=== PATIENT | male | born 1955 | race Caucasian/White ===

== ENCOUNTER 2019-01-10 09:04 | Day surgery (SDC) | payer OTHER ==
[2019-01-10 09:49] VITALS: BMI 46.1
[2019-01-10 11:18] VITALS: TEMP 98.6
[2019-01-10 11:39] VITALS: BP 110/49
[2019-01-10 11:58] VITALS: PULSE 64
--- NOTE | 2019-01-12 18:10 | PATH ---
Surgical Pathology Report Patient Name: NILESH FRENCH [facility]. Rec. #: [id number] /Age/Gender: 1955 (Age: 63) / M Account: [id number] Location: U-ENDOSCOPY Taken: 01/10/2019 Received: 01/11/2019 Reported: 01/12/2019 Physicians: Gabe Durbin M.D. Specimen(s) Received A: POLYP RECTUM B: POLYP PROXIMAL TRANSVERSE COLON C: POLYP DISTAL TRANSVERSE COLON Clinical History Screening Postoperative diagnosis: Colon polyps, diverticulosis Final Diagnosis A. RECTUM, POLYP, BIOPSY: TUBULAR ADENOMA. B. PROXIMAL TRANSVERSE COLON, POLYP, BIOPSY: POLYPOID COLONIC MUCOSA WITHOUT SIGNIFICANT PATHOLOGIC FINDINGS. C. DISTAL TRANSVERSE COLON, POLYP, BIOPSY: HYPERPLASTIC POLYP. Electronically Signed Nika Hitchcock M.D. Gross Description A. Received in formalin, labeled "polyp rectum" is a whitley, irregular portion of soft tissue measuring 0.3 cm. in greatest dimension. The specimen is submitted in toto in one cassette. B. Received in formalin, labeled "polyp proximal transverse" are 2 whitley, irregular portions of soft tissue averaging 0.2 cm. in greatest dimension. The specimens are submitted in toto in one cassette. C. Received in formalin, labeled "polyp distal transverse colon" are 4 whitley, irregular portions of soft tissue ranging from 0.1-0.4 cm. in greatest dimension. The specimens are submitted in toto in one cassette. DL/01/11/2019 saudi01/11/2019
== END 2019-01-10 12:08 | disposition home or self-care (01) ==
LOC: JASU-ENDO 09:04
PROVIDERS: ATTEND Internal Medicine Gastroenterology
PROC: 0DBL8ZX Excision of Transverse Colon, Via Natural or Artificial Opening Endoscopic, Diagnostic (ICD-10-PCS; 2019-01-10)
PROC: 0DBP8ZX Excision of Rectum, Via Natural or Artificial Opening Endoscopic, Diagnostic (ICD-10-PCS; principal; 2019-01-10 10:00)
DX: Z12.11 Encounter for screening for malignant neoplasm of colon (principal); D12.8 Benign neoplasm of rectum; D12.3 Benign neoplasm of transverse colon; I10 Essential (primary) hypertension; E78.5 Hyperlipidemia, unspecified; G47.30 Sleep apnea, unspecified
CPT/HCPCS: 88305-TC

== ENCOUNTER 2024-12-19 06:26 | Day surgery (SDC) | payer OTHER ==
[2024-12-11 14:13] VITALS: BMI 42.3
[2024-12-19 09:27] VITALS: TEMP 98
[2024-12-19 09:29] VITALS: PULSE 53
[2024-12-19 09:30] VITALS: BP 120/59; RESP 20
== END 2024-12-19 09:15 | disposition home or self-care (01) ==
LOC: JASU-ENDO 06:26
PROVIDERS: ATTEND Internal Medicine Gastroenterology
PROC: 0DBN8ZX Excision of Sigmoid Colon, Via Natural or Artificial Opening Endoscopic, Diagnostic (ICD-10-PCS; principal; 2024-12-19 08:00)
DX: Z12.11 Encounter for screening for malignant neoplasm of colon (principal); D12.5 Benign neoplasm of sigmoid colon; K57.30 Diverticulosis of large intestine without perforation or abscess without bleeding; Z86.0101 Personal history of adenomatous and serrated colon polyps